=== PATIENT | male | born 1970 | race Caucasian/White ===

== ENCOUNTER 2017-12-16 20:40 | Emergency (ER) | payer OTHER, SELFPAY ==
[2017-12-16 20:42] VITALS: BP 125/75; PULSE 107; RESP 18; TEMP 37.7; O2SAT 97; BMI 30.1
--- NOTE | 2017-12-16 21:56 | ED.RN ---
STATES CHANGE IN SOAP RECENTLY, BUT PT STOPPED USING IT AFTER FIVE DAYS. REDNESS HAS GOTTEN WORSE. PT NOW HAS FEVER. STATES HE WASN'T FEELING WELL BEFORE RASH APPEARED AND WAS TAKING ALEVE FREQUENTLY. WAS ALSO OUT IN THE [place]ISE TWO WEEKS AGO.
[2017-12-16 22:22] LABS: Bacteria 0 SEEN /hpf (None Seen); Mucous, Urine 0 SEEN /hpf (<or=2+)
[2017-12-16 22:25] LABS: Color, Urine Yellow (Yellow); Glucose, Dipstick Normal (Normal); Ketone-Dipstick 5 mg/dl (Negative); Leukocyte Esterase-Dipstick Negative /ul (Negative); Nitrite-Dipstick Negative (Negative); Occult Blood-Urine Negative /ul (Negative); Protein-Dipstick Negative (Negative); Urine Bilirubin Dipstick Negative (Negative); Urine Clarity Clear (Clear); Urine Urobilinogen 4 mg/dl (Normal)
[2017-12-16 22:26] LABS: Absolute Lymphocyte Count 0.76 X10^3/ul (0.83-4.51); Absolute Neutrophil Count 7.1 X10^3/uL (2.0-7.7); Basophil# 0.03 X10^3/uL; Basophil% 0.4 % (0-1); Eosinophil# 0.12 X10^3/uL; Eosinophils% 1.4 % (0-5); Hematocrit 39.4 % (40-54); Hemoglobin 12.9 g/dl (13.0-16.5); Lymphocyte # 0.76 X10^3/ul (4.0); Lymphocyte % 9.2 % (19-41); Mean Corp Hgb Conc 32.7 g/gl (32-36); Mean Corpuscular Hgb 29.3 pg (27.0-32.0); Mean Corpuscular Volume 89.5 fL (80-94); Mean Platelet Vol. 9.2 fl (6.2-12.0); Monocyte# 0.28 X10^3/uL; Monocyte% 3.4 % (0-10); Neutrophil # 7.09 X10^3/uL (2.7-7.7); Neutrophil % 85.5 % (47-70); POSITIVE COUNT NO; POSITIVE DIFFERENTIAL NO; POSITIVE MORPHOLOGY NO; Platelet Count 308 K/mm3 (150-450); RBC Distribution Width SD 39.1 fl (35.1-43.9); White Blood Count 8.3 K/mm3 (4.4-11.0)
[2017-12-16 22:42] LABS: White Blood Cells 0-5 SEEN /hpf (0-5)
[2017-12-16 22:43] LABS: Red Blood Cells-Urine 0-5 SEEN /hpf (0-5); Squamous Epithelial Cells - UA 0-5 SEEN /hpf (0-5)
[2017-12-16 22:46] LABS: AST(SGOT) 24 U/L (15-37); Alanine Aminotransfer ALT/SGPT 22 U/L (16-61); Albumin, Serum 2.9 g/dL (3.2-5.0); Alkaline Phosphatase 97 U/L (45-117); Anion Gap 8 (5-15); BUN 18 mg/dL (7-18); Bilirubin, Direct 0.15 mg/dL (0.00-0.30); Chloride 103 mmol/L (98-107); Creatinine, Serum 1.29 mg/dL (0.70-1.30); EST Glomerular Filtration Rate 63 mL/min (>60); Est Glom Filt Rate - Afr Amer 76 mL/min (>60); Estimated Creatinine Clearance 76.03 ml/min; Globulin 4.3 g/dL (2.2-4.2); Glucose 159 mg/dL (74-106); Potassium 3.7 mmol/L (3.5-5.1); Protein, Total 7.2 g/dL (6.4-8.2); Sodium Level 139 mmol/L (136-145)
[2017-12-16 22:49] LABS: Erythrocyte Sedimentation Rate 39 mm/hr (0-15)
[2017-12-16] MEDS: 0.9% Normal Saline 1,000 ML 150 ML IV (22:50)
[2017-12-16 22:51] VITALS: BP 105/67; PULSE 108; RESP 20; O2SAT 97
--- NOTE | 2017-12-16 23:45 | ED.DCSUM_ITS ---
- ER Visit Summary Date of Service: 12/16/17 Chief Complaint: Fever, rash, body aches History of Present Illness: The patient is a 47 M reports a two-week history of the above symptoms. Patient states he initially developed chills and body aches after mowing the yard when night. He took some Aleve. A few days later he developed a splotchy rash over his chest, back, and arms. It seemed to start in the right upper quadrant of the abdomen and spread from there. Patient states over the past 2 weeks is continued to have this rash along with body aches and joint tenderness. He has had mild headache. He has had subjective fever but has not been measured at home. Patient has an appointment with his primary care physician on December 27. He went to urgent care [facility] who referred him to the emergency room. Patient does not know of any new medications. He does not know of any particular bites, but does state that he is in the [place] a lot and it has been turkey hunting. Physical Examination: Blood pressure is 125/75, temperature 99.8, heart rate is 107, respiratory rate 18, pulse ox 97% on room air. Patient sitting upright in bed no acute distress. He is alert and talkative. He is nontoxic appearing. Head and neck examination is unremarkable. Heart is regular rhythm but slightly tachycardic. Lung sounds are clear. Abdomen is soft and nontender. Skin examination reveals flat erythematous patches over the trunk and upper extremities. The rash appears consistent with erythema migrans. Test Results: CBC was normal white count with hemoglobin 12.9. Chemistry studies are unremarkable. Urinalysis is normal. Sed rate is elevated at 39 and CRP is 128. Blood work was sent for Lyme testing, but will not be available for several days. Emergency Department Course and Treatment: Patient was given IV fluids. On repeat evaluation is resting comfortably. When I first enter the room his heart rate is just below 100, but as we talk about test results heart rate ranges between 100-115. It is intermittently irregularly and on the monitor he is having occasional PACs. He is clearly in a sinus rhythm with normal appearing intervals on the monitor. Test results are discussed with patient and family at bedside. I do have concern about Lyme disease and he will be started on antibiotics at this time while we are awaiting test results. He has a appointment with his primary care physician and he was encouraged to move that up as soon as possible. He is to return for worsening symptoms. Treatment Plan: [] Disposition: Discharge Impression: Erythema migrans concerning for Lyme disease This note was generated with [employer] dictation software. It may contain incorrect words, spelling, and punctuation that were not noted in review of the chart prior to signing ED Disposition - Plan for ED Patient: Disposition: Home or Assisted Living Chief Complaint: General Illness Instructions: ED Lyme Disease Prescriptions: Doxycycline Monohydrate 100 mg PO BID #42 capsule Referrals: Clemente Whittington [Primary Care Provider] - 3-5 Days
[2017-12-16] MEDS: Doxycycline 100 MG CAPSULE PO (23:55)
[2017-12-17 00:02] VITALS: BP 103/78; PULSE 111; RESP 20
[2017-12-22 14:36] LABS: Lyme Scn Total Ab w/Rflx 3.13 ISR (0.00-0.90)
== END 2017-12-17 00:03 | disposition home or self-care (01) ==
PROVIDERS: Emergency Provider Emergency Medicine; Family Provider Family Medicine; PCP Family Medicine
DX: A26.0 Cutaneous erysipeloid (principal); Z87.891 Personal history of nicotine dependence
CPT/HCPCS: 80048; 80076; 81001; 85025; 85652; 86140; 86618; 87040; 96360; 99285; J7030; A4216

== ENCOUNTER → 2019-03-09 14:46 | Outpatient (CLI) | payer OTHER, SELFPAY ==
--- NOTE | 2019-03-09 14:59 | ECHOD_ITS ---
Reason For Study: MURMUR Procedure This was a 2D Doppler, Color Flow transthoracic echocardiogram. Exam performed in department. Left Ventricle Normal LV size. The estimated ejection fraction is 55 %. Normal diastology for age. No regional wall motion abnormalities noted. Right Ventricle Normal RV size. Normal systolic function. Atria Normal left atrium. Normal right atrium. No doppler evidence for ASD. Mitral Valve There is no mitral valve stenosis. No mitral valve insufficiency. Tricuspid Valve There is no tricuspid stenosis. Trivial tricuspid valve insufficiency. Pulmonary artery systolic pressure is 35 mmHg. Aortic Valve Bicuspid aortic valve. Moderate diffuse aortic valve thickening. Mild aortic stenosis. No aortic valve insufficiency. Pulmonic Valve There is no pulmonic valvular stenosis. No pulmonic valve insufficiency. Great Vessels Normal aortic root. Pericardium/Pleural No pericardial effusion. MMode/2D Measurements & Calculations LVIDd: 4.9 cm IVSd: 1.0 cm LVOT diam: 2.9 cm LVIDs: 3.5 cm LVPWd: 1.2 cm LVOT area: 6.4 cm2 RVDd: 4.0 cm FS: 27.6 % Ao root diam: 3.2 cm LAV(MOD-bp): 47.4 ml Aortic Valve Planimetry: 2.4 cm2 LAV(MOD-bp) Indexed: 21.4 ml/m2 LAV(MOD-sp2): 47.4 ml LAV(MOD-sp4): 47.1 ml LA dimension(2D): 4.0 cm LA A4 area: 17.6 cm2 RA A4 area: 19.3 cm2 Time Measurements MV dec time: 0.20 sec Doppler Measurements & Calculations MV E max teo: 75.6 cm/sec Lat Peak E' Teo: 8.0 cm/sec Med Peak E' Teo: 7.9 cm/sec MV A max teo: 81.4 cm/sec E/E' lat: 9.5 E/E' med: 9.6 MV E/A: 0.93 Ao V2 max: 253.7 cm/sec LV V1 max: 93.3 cm/sec SV(LVOT): 125.6 ml Ao max P.8 mmHg LV V1 max P.5 mmHg Ao V2 mean: 197.3 cm/sec LV V1 mean P.1 mmHg Ao mean P.7 mmHg LV V1 mean: 70.4 cm/sec Ao V2 VTI: 51.8 cm LV V1 VTI: 19.6 cm RANDA(I,D): 2.4 cm2 RANDA(V,D): 2.4 cm2 PA V2 max: 130.3 cm/sec TR max teo: 259.9 cm/sec TR max P.1 mmHg Interpretation Summary The estimated ejection fraction is 55 %. Normal diastology for age. Trivial tricuspid valve insufficiency. Pulmonary artery systolic pressure is 35 mmHg. Mild aortic stenosis. Bicuspid aortic valve. Ordering Physician: Edgard Kaur Referring Physician: Clemente Whittington Performed By: Suri Castro RDCS, RVT
== END ==
PROVIDERS: Family Provider Family Medicine; PCP Family Medicine; Referring Provider Internal Medicine Pulmonary Disease; Visit Provider Internal Medicine Pulmonary Disease
DX: R01.1 Cardiac murmur, unspecified (principal)
CPT/HCPCS: 93306

== ENCOUNTER → 2020-10-03 14:31 | Outpatient (CLI) | payer SELFPAY ==
--- NOTE | 2020-10-03 14:38 | ECHOD_ITS ---
Reason For Study: PHTN Procedure This was a 2D Doppler, Color Flow transthoracic echocardiogram. Exam performed in department. Left Ventricle Normal LV size. The estimated ejection fraction is 65 %. No evidence for diastolic dysfunction. No regional wall motion abnormalities noted. Right Ventricle Normal RV size. Normal systolic function. Atria Normal left atrium. Normal right atrium. No doppler evidence for ASD. Mitral Valve There is no mitral valve stenosis. No mitral valve insufficiency. Tricuspid Valve There is no tricuspid stenosis. Trivial tricuspid valve insufficiency. Unable to estimate RV systolic pressure due to insufficient tricuspid regurgitant envelope. Aortic Valve Bicuspid aortic valve. Moderate diffuse aortic valve calcification. Mild aortic stenosis. No aortic valve insufficiency. Pulmonic Valve There is no pulmonic valvular stenosis. No pulmonic valve insufficiency. Great Vessels Normal aortic root. Pericardium/Pleural No pericardial effusion. MMode/2D Measurements & Calculations LVIDd: 5.9 cm IVSd: 1.2 cm LVOT diam: 2.9 cm LVIDs: 3.8 cm LVPWd: 1.1 cm LVOT area: 6.6 cm2 RVDd: 3.4 cm FS: 35.8 % Ao root diam: 3.8 cm LAV(MOD-bp): 55.6 ml LA A4 area: 19.9 cm2 LAV(MOD-bp) Indexed: 25.0 ml/m2 LAV(MOD-sp2): 55.0 ml LAV(MOD-sp4): 55.0 ml LA dimension(2D): 3.7 cm RA A4 area: 15.6 cm2 Time Measurements MV dec time: 0.20 sec Doppler Measurements & Calculations MV E max teo: 62.6 cm/sec Lat Peak E' Teo: 7.7 cm/sec Med Peak E' Teo: 7.6 cm/sec MV A max teo: 69.8 cm/sec E/E' lat: 8.2 E/E' med: 8.2 MV E/A: 0.90 Ao V2 max: 266.4 cm/sec LV V1 max: 84.2 cm/sec SV(LVOT): 123.1 ml Ao max P.4 mmHg LV V1 max P.8 mmHg Ao V2 mean: 198.3 cm/sec LV V1 mean P.6 mmHg Ao mean P.0 mmHg LV V1 mean: 61.0 cm/sec Ao V2 VTI: 57.4 cm LV V1 VTI: 18.8 cm RANDA(I,D): 2.1 cm2 RANDA(V,D): 2.1 cm2 PA V2 max: 128.9 cm/sec Interpretation Summary The estimated ejection fraction is 65 %. No evidence for diastolic dysfunction. Bicuspid aortic valve. Moderate diffuse aortic valve calcification. Mild aortic stenosis. Ordering Physician: Edgard Kaur Referring Physician: Clemente Whittington Performed By: Suri Castro, JONATHON, RVT
== END ==
PROVIDERS: PCP Family Medicine; Referring Provider Internal Medicine Pulmonary Disease; Visit Provider Internal Medicine Pulmonary Disease
DX: I27.20 Pulmonary hypertension, unspecified (principal)
CPT/HCPCS: 93306

== ENCOUNTER 2022-12-24 16:11 | Emergency (ER) | payer OTHER, SELFPAY ==
[2022-12-24 16:12] VITALS: BP 158/92; PULSE 98; RESP 17; TEMP 37.2; O2SAT 99; BMI 30.3
--- NOTE | 2022-12-24 16:34 | EX.ED.GENINJ ---
HPI <MALLORIE Parish - Last Filed: 12/24/22 20:02> History of Present Illness Chief Complaint: Laceration Narrative Narrative: Patient presenting today with a laceration to his left pinky finger that he got while using a saw shortly before arrival. He is unsure of his last tetanus update, he is not on any blood thinners. He denies any other injury. PFSH <MALLORIE Parish - Last Filed: 12/24/22 20:02> [facility] Medical History (Updated 12/24/22 @ 19:40 by MALLORIE Parish) Laceration Home Medications hydrocodone-acetaminophen 5-325mg 5mg-325mg 1 tab PO Q4H PRN PRN Pain 3 days #10 TABLETS 12/24/22 [Rx Last Taken Unknown] Allergy/AdvReac Type Severity Reaction Status Date / Time No Known Allergies Allergy Verified 12/24/22 16:14 Social History Smoking Status: Unknown if ever smoked ROS <MALLORIE Parish - Last Filed: 12/24/22 20:02> ROS ED Constitutional Constitutional ED: Denies chills or fever(s) Cardiovascular Cardiovascular: Denies chest pain Respiratory/Chest Respiratory/Chest: Denies cough or dyspnea Gastrointestinal Gastrointestinal: Denies abdominal pain, nausea or vomiting Musculoskeletal Musculoskeletal: Reports arthralgias; Denies back pain, myalgias or neck pain Integumentary Reports laceration; Denies abscess, Abrasions or rash Neurologic Neurologic: Denies paresthesias or weakness Hematologic/Lymphatic Hematologic/Lymphatic: Denies easy bleeding EXAM <MALLORIE Parish - Last Filed: 12/24/22 20:02> Physical Exam Const Vital Signs: 12/24/22 16:12 12/24/22 19:33 12/24/22 19:50 Temperature 98.9 F Temperature Source Temporal Pulse Rate 98 61 61 Respiratory Rate 17 16 16 Blood Pressure 158/92 H 130/92 H 130/92 H Blood Pressure Mean 114 104 104 Pulse Ox 99 98 98 Oxygen Delivery Method Room Air Positive well nourished, well developed and no apparent distress General Appearance ED: well developed HEENT Reports normocephalic and head/scalp atraumatic Mouth ED: Yes moist mucous membranes normal Eyes PERRL and EOMs intact bilaterally Neck full ROM and supple Chest Wall inspection of chest normal Resp normal respiratory effort and clear to auscultation bilaterally Cardio regular rate and regular rhythm GI soft to palpation, non-tender, non-distended and no masses Back/Spine normal ROM and normal to inspection Extremity Extremity Narrative: 3 cm laceration wrapping around the lateral aspect of the left fifth finger near the DIP joint. Loss of sensation to the tip of the fifth finger. Sensation intact below the DIP joint, radial pulses 2+ and equal bilaterally. Neuro oriented x3, CN's II-XII intact bilaterally, moves all extremities, no focal motor deficits and no sensory deficits noted Sensorium / Orientation: awake and alert Psych mental status grossly normal and thought process normal Skin no rashes or lesions noted and no wounds <Dr. Tunde Costello DO - Last Filed: 12/24/22 23:05> Physical Exam Const Vital Signs: 12/24/22 16:12 12/24/22 19:33 12/24/22 19:50 Temperature 98.9 F Temperature Source Temporal Pulse Rate 98 61 61 Respiratory Rate 17 16 16 Blood Pressure 158/92 H 130/92 H 130/92 H Blood Pressure Mean 114 104 104 Pulse Ox 99 98 98 Oxygen Delivery Method Room Air PROC <MALLORIE Parish - Last Filed: 12/24/22 20:02> Procedures Lacerations Laceration : Length: 1.18 in Shape: Linear Irrigated (ml): 30 Number of Sutures/Spencer: 2 Suture Information: Ethilon (4-0) [facility] <MALLORIE Parish - Last Filed: 12/24/22 20:02> [facility] Narrative Medical decision making narrative: Patient presenting today with a deep laceration to the left fifth finger that wraps around from the lateral aspect to the volar aspect. Tetanus has been updated. X-ray obtained to rule out fracture and does show a fracture/amputation of the distal tuft of the fifth finger. Patient does not have any sensation in the tip of his fifth finger. I have consulted [facility] hand specialist, Dr. Jordan who recommends putting in 2 loose sutures to the area and having patient follow-up on Tuesday and starting him on antibiotics. I had patient soak his hand in soapy water and then I attempted to irrigate the area with saline and clean it with chlorhexidine. I placed 2 sutures and I did notice that patient's tendon was severed. I did call Dr. Jordan back to let him know of this finding and he recommended transferring patient to [facility] [place] for evaluation and treatment. Patient has been started on Keflex with first dose here. He has not been given anything for pain and will drive himself to [facility] in stable condition. Patient is comfortable with plan. Radiography X-Ray: Read by ED Physician and Read by Radiologist Diagnostic Testing: Clinical Impression(s) from Imaging Studies Hand X-Ray 12/24/22 16:35 IMPRESSION: Fracture/amputation distal tuft fifth digit. Electronically Signed: Kyle Nava MD at 17:00 EDT , <Dr. Tunde Costello, DO - Last Filed: 12/24/22 23:05> [facility] Narrative Medical decision making narrative: Patient presenting today with a deep laceration to the left fifth finger that wraps around from the lateral aspect to the volar aspect. Tetanus has been updated. X-ray obtained to rule out fracture and does show a fracture/amputation of the distal tuft of the fifth finger. Patient does not have any sensation in the tip of his fifth finger. I have consulted [facility] hand specialist, Dr. Jordan who recommends putting in 2 loose sutures to the area and having patient follow-up on Tuesday and starting him on antibiotics. I had patient soak his hand in soapy water and then I attempted to irrigate the area with saline and clean it with chlorhexidine. I placed 2 sutures and I did notice that patient's tendon was severed. I did call Dr. Jordan back to let him know of this finding and he recommended transferring patient to [facility] [place] for evaluation and treatment. Patient has been started on Keflex with first dose here. He has not been given anything for pain and will drive himself to [facility] in stable condition. Patient is comfortable with plan. This patient was seen with a PA/WALL CRANE OPERATOR Individually assessed they patient including history and physical. I have reviewed everything on the chart that is available and agree with the documentation provided by the PA/WALL CRANE OPERATOR including discussion about the assessment, treatment plan, discussion, and return precautions. Patient with fracture amputation of the distal tuft initially thought to be able to go home and follow-up Tuesday per Dr. Jordan after initial exam. After patient was soaked and cleaned up it does appear he has a tendinous injury. This was discussed again with the hand specialist and he recommended transfer. Antibiotics were given. Patient stable for transfer by POV. Radiography Diagnostic Testing: Clinical Impression(s) from Imaging Studies Hand X-Ray 12/24/22 16:35 IMPRESSION: Fracture/amputation distal tuft fifth digit. Electronically Signed: Kyle Nava MD at 17:00 EDT , Discharge Plan Triage Chief Complaint: Laceration ED Midlevel Provider: Hyun Garay ED Provider: Tunde Costello Dx/Rx/DC Orders Clinical Impression: Open fracture of finger Prescriptions: New hydrocodone-acetaminophen 5-325 mg tablet 1 tab PO Q4H PRN PRN (Reason: Pain) 3 Days Qty: 10 0RF Primary Care Provider: Clemente Whittington Referrals: Clemente Whittington MD [Primary Care Provider] - Activity Restrictions/Additional Instructions: Please go directly to the [facility] [place] for treatment. Disposition Disposition: Acute Care Hospital Discharge Location: [facility] [place] Discharge Date/Time: 12/24/22 19:53
[2022-12-24] MEDS: Diphth,Pertuss(Acell),Tet Vac 0.5 ML Vial IM (16:35)
--- NOTE | 2022-12-24 16:35 | RAD_ITS ---
INDICATION: Left fifth digit laceration EXAMINATION/TECHNIQUE: X-RAY - LEFT XR Hand Min 3 Views 3 VIEWS COMPARISON: None. FINDINGS: SOFT TISSUES: Soft tissue swelling over the fifth distal phalanx. No radiopaque foreign body. BONES/JOINTS: Displaced fracture/amputation of the distal tuft fifth digit. Joint spaces anatomically aligned. RAD/Hand Min 3 Views IMPRESSION: Fracture/amputation distal tuft fifth digit. Electronically Signed: Kyle Nava MD at 17:00 EDT ,
--- NOTE | 2022-12-24 17:31 | NURSING ---
FAXED FACESHEET TO [facility]
[2022-12-24] MEDS: Lidocaine 1% (20 ml mdv) 20 ML Vial 7 ML INFILT (18:06)
--- NOTE | 2022-12-24 19:02 | ED.RN ---
spoke with [employer] per Hyun Garay's request. Will have physician call back.
[2022-12-24 19:33] VITALS: BP 130/92; PULSE 61; RESP 16; O2SAT 98
[2022-12-24] MEDS: Cephalexin 250 MG Capsule 500 MG PO (19:49)
[2022-12-24 19:50] VITALS: BP 130/92; PULSE 61; RESP 16; O2SAT 98
== END 2022-12-24 19:53 | disposition short-term general hospital (02) ==
PROVIDERS: Emergency Provider Student in an Organized Health Care Education/Training Program; PCP Family Medicine; Visit Provider Student in an Organized Health Care Education/Training Program
DX: S62.637B Displaced fracture of distal phalanx of left little finger, initial encounter for open fracture (principal); S66.922A Laceration of unspecified muscle, fascia and tendon at wrist and hand level, left hand, initial encounter; W31.2XXA Contact with powered woodworking and forming machines, initial encounter; Z23 Encounter for immunization
CPT/HCPCS: 12002; 73130; 90715; 99283

== ENCOUNTER → 2024-04-18 | Outpatient (CLI) | payer SELFPAY ==
[2024-04-18 09:15] LABS: Cholesterol 217 mg/dL (200); High Density Lipoprotein 40 mg/dL; Triglycerides 372 mg/dL; Very Low Density Lipoprotein 74 mg/dL (5-40)
== END | disposition home or self-care (01) ==
PROVIDERS: PCP Family Medicine; Referring Provider Internal Medicine Cardiovascular Disease; Visit Provider Internal Medicine Cardiovascular Disease
DX: I25.10 Atherosclerotic heart disease of native coronary artery without angina pectoris (principal)
CPT/HCPCS: 36415; 80061

== ENCOUNTER → 2024-05-08 | Outpatient (CLI) | payer SELFPAY ==
--- NOTE | 2024-05-08 13:29 | CT_ITS ---
HISTORY: Evaluate thoracic aorta. TECHNIQUE: CT angiogram of the chest was performed after the intravenous administration of 100 mL Isovue-370. Post-processing of the angiographic images was performed with multiplanar reformation and 3D reconstruction. Individualized dose optimization techniques were used for this CT. 1229 images. COMPARISON: None. FINDINGS: CENTRAL AIRWAYS: Patent. LUNGS: Very mild bilateral lower lobe atelectasis. Elevated right hemidiaphragm. PLEURA: No pneumothorax or significant pleural effusion. HEART/PERICARDIUM: Heart within normal limits in size. Aortic valve calcifications. No pericardial effusion. PULMONARY ARTERIES: No filling defect. AORTA/VESSELS: 4 cm ascending aorta. No dissection flap. 3 cm aortic arch. 2.2 cm mid descending aorta. MEDIASTINUM/REZA: No pathologically enlarged lymph nodes. Large hiatal hernia. OSSEOUS STRUCTURES: Degenerative change. UPPER ABDOMEN: Hepatic steatosis. CT/CTA Chest W/WO Contrast IMPRESSION: Mildly dilated 4 cm ascending thoracic aorta. Large hiatal hernia. Electronically Signed: Morena Costa MD at 14:35 EDT ,
== END | disposition home or self-care (01) ==
PROVIDERS: PCP Family Medicine; Referring Provider Internal Medicine Cardiovascular Disease; Visit Provider Internal Medicine Cardiovascular Disease
DX: Z01.810 Encounter for preprocedural cardiovascular examination (principal); I27.20 Pulmonary hypertension, unspecified; I77.810 Thoracic aortic ectasia; I35.2 Nonrheumatic aortic (valve) stenosis with insufficiency; Q23.1 Congenital insufficiency of aortic valve; R06.09 Other forms of dyspnea
CPT/HCPCS: 71275; 93005; Q9967

== ENCOUNTER 2024-05-17 08:33 | Day surgery (SDC) | payer OTHER, SELFPAY ==
[2024-05-08 11:03] LABS: Hematocrit 49.7 % (40-54); Hemoglobin 16.4 g/dL (13.0-16.5); Mean Corpuscular Volume 90.9 fL (80-94); Mean Platelet Vol. 8.7 fl (6.2-12.0); Platelet Count 224 K/mm3 (150-450); RBC Distribution Width CV 11.7 % (11.6-14.6); RBC Distribution Width SD 39.2 fl (35.1-43.9); Red Blood Count 5.47 M/mm3 (4.6-6.2); White Blood Count 4.2 K/mm3 (4.4-11.0)
[2024-05-08 11:17] LABS: Prothrombin Time (Protime)PT. 12.9 SECONDS (11.7-14.9)
[2024-05-08 11:49] LABS: Anion Gap 2 (5-15); BUN 17 mg/dL (7-18); BUN/Creat Ratio 14.5 RATIO (10-20); Chloride 107 mmol/L (98-107); Creatinine, Serum 1.17 mg/dL (0.70-1.30); EST Glomerular Filtration Rate 69 mL/min (>60); Est Glom Filt Rate - Afr Amer 83 mL/min (>60); Glucose 115 mg/dL (74-106); Potassium 4.4 mmol/L (3.5-5.1); Sodium Level 139 mmol/L (136-145)
[2024-05-16 13:50] VITALS: BMI 31.0
--- NOTE | 2024-05-17 11:21 | CL.D_ITS ---
Patient Name: TRI CAMPBELL Study Date: 05/17/2024 Performing: Caitlin Garcia MD Ht: 72 inches 182.88 cm : 1970 Wt: 228.99 lbs 103.87 kg Age: 53 Gender: male BSA: 2.26 PROCEDURE(S) PERFORMED [id number])[facility] CLINICAL PROFILE AND INDICATIONS Indications: Pre-Operative Evaluation Heart Failure: None CAD Presentations: No Sxs, no angina. CONCLUSIONS RECOMMENDATIONS Risk factor modification Surgical evaluation for aortic valve disease DESCRIPTION OF PROCEDURE The patient arrived to the procedure lab. The risks and benefits of the procedure as well as a full description of our services here and current unavailability of surgical backup were fully explained to the patient and/or their significant other prior to the catheterization. The Timeout was completed, verifying the correct patient and procedure. The patient's procedural site was prepped and draped in the usual fashion. Local anesthetic was given subcutaneously to right radial region with Lidocaine 2%. Using a modified Seldinger technique, arterial access was obtained via the right radial artery, a 6Fr sheath was inserted. Left Coronary Artery selective angiography was performed in multiple views using a 5 Fr. 4.0 Ringling catheter. Right Coronary Artery selective angiography was then performed in multiple views using a 5 Fr. 3DRC (Roger) catheter.The arterial sheath was pulled and a TR Band was applied for hemostasis CORONARY ANGIOGRAPHY DOMINANCE: Right Dominant LEFT MAIN: Angiographically normal LEFT ANTERIOR DESCENDING ARTERY: Angiographically normal CIRCUMFLEX ARTERY: Angiographically normal RIGHT CORONARY ARTERY: Angiographically normal COMPLICATIONS No Complications PROCEDURE MEDICATIONS Versed 1 mg IV Fentanyl 50 mcg IV Oxygen: 2 L/min via nasal cannula Heparin given IA 05/17/2024 10:44:21 Heparin 2000 unit(s) IV 05/17/2024 11:02:32 Verapamil 2.5mg, Ntg 200mcgs, 2000 units of Heparin given IA 05/17/2024 10:44:21 SUMMARY OF HEMODYNAMIC DATA Time AIR REST ECG 09:06:55 AO 102/62 (80) SA 10:45:37 AIR REST 11:20:47 Signed By Caitlin Garcia MD On 05/17/2024 11:20:54 Caitlin Garcia MD
== END 2024-05-17 13:25 | disposition home or self-care (01) ==
PROVIDERS: PCP Family Medicine; Referring Provider Internal Medicine Cardiovascular Disease; Visit Provider Internal Medicine Cardiovascular Disease
DX: Z01.810 Encounter for preprocedural cardiovascular examination (principal); I27.20 Pulmonary hypertension, unspecified; I35.2 Nonrheumatic aortic (valve) stenosis with insufficiency; I77.810 Thoracic aortic ectasia; Q23.81 Bicuspid aortic valve; R06.09 Other forms of dyspnea; Z87.891 Personal history of nicotine dependence; Z82.49 Family history of ischemic heart disease and other diseases of the circulatory system
CPT/HCPCS: 36415; 80048; 85027; 85610; 93454; 99152; 99153; Q9967; C1769; C1894